=== PATIENT | male | born 1975 | race Caucasian/White ===

== ENCOUNTER → 2017-01-08 | Outpatient (REF) | payer OTHER ==
[2017-01-09 07:57] LABS: CONTROL LINE HPYORI INT CTR LINE PRESENT
== END ==
LOC: M LAB REF 16:58
PROVIDERS: ATTEND Nurse Practitioner Family
DX: R19.7 Diarrhea, unspecified (principal)

== ENCOUNTER → 2017-04-08 | Outpatient (REF) | payer OTHER | LOC: M LAB REF 13:39 | PROVIDERS: ATTEND Nurse Practitioner Family | DX: R00.2 Palpitations (principal) ==

== ENCOUNTER 2018-06-30 18:19 | Inpatient (IN) | payer OTHER ==
[2018-06-30] MEDS: PERCOCET 5MG/325MG TAB PO ×2 (18:46→22:53)
[2018-06-30 19:24] LABS: BASO # 0.1 10^3/uL (0.0-0.2); BASO % 0.9 % (0.0-1.0); EOS # 0.3 10^3/uL (0.0-0.50); EOS % 3.5 % (0.0-3.0); HEMATOCRIT 45.1 % (42.0-52.0); HEMOGLOBIN 16.1 g/dl (13.5-17.5); IMMATURE GRANULOCYTE % 0.3 % (0-3.0); LYMPH # 2.2 10^3/uL (1.5-4.5); LYMPH % 29.6 % (24.0-44.0); MEAN CORPUSCULAR HEMOGLOBIN 32.1 pg (27.0-33.0); MEAN CORPUSCULAR HGB CONC 35.7 g/dl (32.0-36.5); MEAN CORPUSCULAR VOLUME 89.8 fl (80.0-96.0); MONO # 0.8 10^3/uL (0.0-0.8); MONO % 10.5 % (0.0-5.0); NEUTROPHILS # 4.1 10^3/uL (1.8-7.7); NEUTROPHILS % 55.2 % (36.0-66.0); PLATELET COUNT, AUTOMATED 249 10^3/uL (150-450); RED BLOOD COUNT 5.02 10^6/uL (4.30-6.10); RED CELL DISTRIBUTION WIDTH 12.2 % (11.5-14.5); WHITE BLOOD COUNT 7.4 10^3/uL (4.0-10.0)
[2018-06-30 19:36] LABS: INR 0.98; PROTHROMBIN TIME 13.1 SECONDS (12.1-14.4)
[2018-06-30 19:37] LABS: PARTIAL THROMBOPLASTIN TIME 28.7 SECONDS (25.4-37.6)
[2018-06-30 19:45] LABS: ERYTHROCYTE SEDIMENTATION RATE 7 mm/hr (0-15)
[2018-06-30 19:47] LABS: LACTIC ACID SEPSIS PROTOCOL 1.7 MMOL/L (0.4-2.0)
[2018-06-30 19:48] LABS: ALBUMIN/GLOBULIN RATIO 1.25 (1.00-1.93); ALKALINE PHOSPHATASE 72 U/L (45-117); ALT/SGPT 41 U/L (12-78); ANION GAP 7 MEQ/L (8-16); AST/SGOT 19 U/L (7-37); BILIRUBIN,DIRECT 0.1 MG/DL (0.0-0.2); BILIRUBIN,TOTAL 0.4 MG/DL (0.2-1.0); BLOOD UREA NITROGEN 14 MG/DL (7-18); C REACTIVE PROTEIN QUANTITATIV 0.67 MG/DL (0.00-0.30); CALCIUM LEVEL 8.9 MG/DL (8.5-10.1); CARBON DIOXIDE LEVEL 27 MEQ/L (21-32); CHLORIDE LEVEL 102 MEQ/L (98-107); CREATININE FOR GFR 1.19 MG/DL (0.70-1.30); GLOMERULAR FILTRATION RATE > 60.0 (>60); GLUCOSE, FASTING 135 MG/DL (70-100); POTASSIUM SERUM 4.1 MEQ/L (3.5-5.1); SODIUM LEVEL 136 MEQ/L (136-145); TOTAL PROTEIN 7.2 GM/DL (6.4-8.2)
[2018-06-30] MEDS: CEFTAROLINE FOSAMIL 600 MG in D5W MINI-BAG PLUS 50 ML IV (20:05)
[2018-06-30] MEDS ORDERED: ACETAMINOPHEN TAB 650MG DOSE (2X325MG) PO (21:45)
[2018-06-30] MEDS ORDERED: diphenhydrAMINE 25 MG CAP PO (21:45)
[2018-06-30 22:18] LABS: CHOLESTEROL LEVEL 218 MG/DL (<200); CHOLESTEROL RISK RATIO 6.411 (<5); HDL CHOLESTEROL 34 MG/DL (>40); LDL CHOLESTEROL 140 MG/DL (<100); NON-HDL-C 184 MG/DL; TRIGLYCERIDES LEVEL 220 MG/DL (<150)
[2018-06-30 22:19] LABS: ESTIMATED AVERAGE GLUCOSE 143 MG/DL (60-110); HEMOGLOBIN A1c 6.6 %
[2018-07-01] MEDS: HEPARIN SOD (PORCINE) 5000 UNITS/ML VIAL SC ×3 (06:17→22:12)
[2018-07-01] MEDS: PERCOCET 5MG/325MG TAB PO ×4 (06:17→22:13)
[2018-07-01 06:27] LABS: HEMATOCRIT 42.5 % (42.0-52.0); HEMOGLOBIN 14.8 g/dl (13.5-17.5); MEAN CORPUSCULAR HEMOGLOBIN 31.6 pg (27.0-33.0); MEAN CORPUSCULAR HGB CONC 34.8 g/dl (32.0-36.5); MEAN CORPUSCULAR VOLUME 90.6 fl (80.0-96.0); PLATELET COUNT, AUTOMATED 211 10^3/uL (150-450); RED BLOOD COUNT 4.69 10^6/uL (4.30-6.10); RED CELL DISTRIBUTION WIDTH 12.3 % (11.5-14.5); WHITE BLOOD COUNT 5.3 10^3/uL (4.0-10.0)
[2018-07-01 06:50] LABS: ANION GAP 5 MEQ/L (8-16); BLOOD UREA NITROGEN 14 MG/DL (7-18); CALCIUM LEVEL 8.4 MG/DL (8.5-10.1); CARBON DIOXIDE LEVEL 29 MEQ/L (21-32); CHLORIDE LEVEL 103 MEQ/L (98-107); GLOMERULAR FILTRATION RATE > 60.0 (>60); GLUCOSE, FASTING 126 MG/DL (70-100); POTASSIUM SERUM 3.9 MEQ/L (3.5-5.1); SODIUM LEVEL 137 MEQ/L (136-145)
[2018-07-01 08:53] LABS: C REACTIVE PROTEIN QUANTITATIV 0.63 MG/DL (0.00-0.30)
[2018-07-01] MEDS: HYDROCORTISONE 1% OINTMENT 30GM TOP ×2 (09:00→21:00)
[2018-07-01] MEDS: LISINOPRIL 10 MG TAB PO (10:11)
[2018-07-01] MEDS: hydroCHLOROthiazide 25 MG TAB PO (10:11)
[2018-07-01] MEDS: CEFTAROLINE FOSAMIL 600 MG in D5W MINI-BAG PLUS 50 ML IV ×2 (10:12→22:12)
[2018-07-02] MEDS: HEPARIN SOD (PORCINE) 5000 UNITS/ML VIAL SC ×3 (06:19→20:58)
[2018-07-02] MEDS: PERCOCET 5MG/325MG TAB PO ×3 (06:20→20:59)
[2018-07-02 06:21] LABS: HEMATOCRIT 42.7 % (42.0-52.0); HEMOGLOBIN 14.8 g/dl (13.5-17.5); MEAN CORPUSCULAR HEMOGLOBIN 31.5 pg (27.0-33.0); MEAN CORPUSCULAR HGB CONC 34.7 g/dl (32.0-36.5); MEAN CORPUSCULAR VOLUME 90.9 fl (80.0-96.0); PLATELET COUNT, AUTOMATED 206 10^3/uL (150-450); RED CELL DISTRIBUTION WIDTH 12.3 % (11.5-14.5); WHITE BLOOD COUNT 4.6 10^3/uL (4.0-10.0)
[2018-07-02 06:35] LABS: ANION GAP 2 MEQ/L (8-16); BLOOD UREA NITROGEN 13 MG/DL (7-18); C REACTIVE PROTEIN QUANTITATIV 0.68 MG/DL (0.00-0.30); CALCIUM LEVEL 8.5 MG/DL (8.5-10.1); CARBON DIOXIDE LEVEL 33 MEQ/L (21-32); CHLORIDE LEVEL 103 MEQ/L (98-107); CREATININE FOR GFR 1.09 MG/DL (0.70-1.30); GLOMERULAR FILTRATION RATE > 60.0 (>60); GLUCOSE, FASTING 117 MG/DL (70-100); POTASSIUM SERUM 4.2 MEQ/L (3.5-5.1); SODIUM LEVEL 138 MEQ/L (136-145)
[2018-07-02] MEDS: CEFTAROLINE FOSAMIL 600 MG in D5W MINI-BAG PLUS 50 ML IV ×2 (09:44→20:58)
[2018-07-02] MEDS: LISINOPRIL 10 MG TAB PO (10:06)
[2018-07-02] MEDS: hydroCHLOROthiazide 25 MG TAB PO (10:07)
[2018-07-02] MEDS: HYDROCORTISONE 1% OINTMENT 30GM TOP ×2 (11:30→21:00)
[2018-07-03] MEDS: PERCOCET 5MG/325MG TAB PO ×3 (05:40→22:13)
[2018-07-03] MEDS: HEPARIN SOD (PORCINE) 5000 UNITS/ML VIAL SC ×3 (05:40→22:14)
[2018-07-03 05:53] LABS: HEMATOCRIT 42.2 % (42.0-52.0); HEMOGLOBIN 14.9 g/dl (13.5-17.5); MEAN CORPUSCULAR HEMOGLOBIN 31.6 pg (27.0-33.0); MEAN CORPUSCULAR HGB CONC 35.3 g/dl (32.0-36.5); MEAN CORPUSCULAR VOLUME 89.6 fl (80.0-96.0); PLATELET COUNT, AUTOMATED 205 10^3/uL (150-450); RED BLOOD COUNT 4.71 10^6/uL (4.30-6.10); RED CELL DISTRIBUTION WIDTH 12.2 % (11.5-14.5); WHITE BLOOD COUNT 4.8 10^3/uL (4.0-10.0)
[2018-07-03 06:16] LABS: ANION GAP 5 MEQ/L (8-16); BLOOD UREA NITROGEN 13 MG/DL (7-18); C REACTIVE PROTEIN QUANTITATIV 0.68 MG/DL (0.00-0.30); CALCIUM LEVEL 8.3 MG/DL (8.5-10.1); CARBON DIOXIDE LEVEL 30 MEQ/L (21-32); CHLORIDE LEVEL 103 MEQ/L (98-107); CREATININE FOR GFR 1.04 MG/DL (0.70-1.30); GLOMERULAR FILTRATION RATE > 60.0 (>60); GLUCOSE, FASTING 108 MG/DL (70-100); SODIUM LEVEL 138 MEQ/L (136-145)
[2018-07-03] MEDS: HYDROCORTISONE 1% OINTMENT 30GM TOP ×2 (07:46→22:13)
[2018-07-03] MEDS: CEFTAROLINE FOSAMIL 600 MG in D5W MINI-BAG PLUS 50 ML IV ×2 (09:39→22:12)
[2018-07-03] MEDS: hydroCHLOROthiazide 25 MG TAB PO (10:04)
[2018-07-03] MEDS: LISINOPRIL 10 MG TAB PO (10:05)
[2018-07-04] MEDS: HEPARIN SOD (PORCINE) 5000 UNITS/ML VIAL SC ×3 (06:04→20:36)
[2018-07-04 06:39] LABS: HEMATOCRIT 44.2 % (42.0-52.0); HEMOGLOBIN 15.3 g/dl (13.5-17.5); MEAN CORPUSCULAR HEMOGLOBIN 31.8 pg (27.0-33.0); MEAN CORPUSCULAR HGB CONC 34.6 g/dl (32.0-36.5); MEAN CORPUSCULAR VOLUME 91.9 fl (80.0-96.0); PLATELET COUNT, AUTOMATED 215 10^3/uL (150-450); RED BLOOD COUNT 4.81 10^6/uL (4.30-6.10); RED CELL DISTRIBUTION WIDTH 12.2 % (11.5-14.5); WHITE BLOOD COUNT 5.1 10^3/uL (4.0-10.0)
[2018-07-04 07:19] LABS: ANION GAP 6 MEQ/L (8-16); BLOOD UREA NITROGEN 15 MG/DL (7-18); C REACTIVE PROTEIN QUANTITATIV 0.76 MG/DL (0.00-0.30); CALCIUM LEVEL 9.1 MG/DL (8.5-10.1); CARBON DIOXIDE LEVEL 30 MEQ/L (21-32); CHLORIDE LEVEL 102 MEQ/L (98-107); CREATININE FOR GFR 1.11 MG/DL (0.70-1.30); GLOMERULAR FILTRATION RATE > 60.0 (>60); GLUCOSE, FASTING 113 MG/DL (70-100); POTASSIUM SERUM 4.4 MEQ/L (3.5-5.1); SODIUM LEVEL 138 MEQ/L (136-145)
[2018-07-04] MEDS: CEFTAROLINE FOSAMIL 600 MG in D5W MINI-BAG PLUS 50 ML IV ×2 (08:37→20:35)
[2018-07-04] MEDS: hydroCHLOROthiazide 25 MG TAB PO (08:37)
[2018-07-04] MEDS: HYDROCORTISONE 1% OINTMENT 30GM TOP ×2 (08:38→20:36)
[2018-07-04] MEDS: LISINOPRIL 10 MG TAB PO (08:38)
[2018-07-04] MEDS: PERCOCET 5MG/325MG TAB PO ×2 (13:26→20:37)
[2018-07-05 06:05] LABS: HEMATOCRIT 45.7 % (42.0-52.0); HEMOGLOBIN 15.8 g/dl (13.5-17.5); MEAN CORPUSCULAR HEMOGLOBIN 31.5 pg (27.0-33.0); MEAN CORPUSCULAR HGB CONC 34.6 g/dl (32.0-36.5); MEAN CORPUSCULAR VOLUME 91.2 fl (80.0-96.0); PLATELET COUNT, AUTOMATED 225 10^3/uL (150-450); RED BLOOD COUNT 5.01 10^6/uL (4.30-6.10); RED CELL DISTRIBUTION WIDTH 12.1 % (11.5-14.5)
[2018-07-05] MEDS: HEPARIN SOD (PORCINE) 5000 UNITS/ML VIAL SC (06:09)
[2018-07-05 06:21] LABS: ANION GAP 6 MEQ/L (8-16); BLOOD UREA NITROGEN 14 MG/DL (7-18); C REACTIVE PROTEIN QUANTITATIV 0.71 MG/DL (0.00-0.30); CALCIUM LEVEL 9.1 MG/DL (8.5-10.1); CARBON DIOXIDE LEVEL 28 MEQ/L (21-32); CHLORIDE LEVEL 104 MEQ/L (98-107); CREATININE FOR GFR 1.05 MG/DL (0.70-1.30); GLOMERULAR FILTRATION RATE > 60.0 (>60); GLUCOSE, FASTING 118 MG/DL (70-100); POTASSIUM SERUM 4.1 MEQ/L (3.5-5.1); SODIUM LEVEL 138 MEQ/L (136-145)
[2018-07-05] MEDS: HYDROCORTISONE 1% OINTMENT 30GM TOP (08:53)
[2018-07-05] MEDS: CEFTAROLINE FOSAMIL 600 MG in D5W MINI-BAG PLUS 50 ML IV (08:53)
[2018-07-05] MEDS: hydroCHLOROthiazide 25 MG TAB PO (08:53)
[2018-07-05] MEDS: LISINOPRIL 10 MG TAB PO (08:53)
== END 2018-07-05 12:00 | disposition home or self-care (01) | DRG 383 ==
LOC: M ED 18:19 → M ED INP 21:35 → M MS5PR 22:35
DX: L03.115 Cellulitis of right lower limb (principal); Z68.43 Body mass index [BMI] 50.0-59.9, adult; I10 Essential (primary) hypertension; E66.01 Morbid (severe) obesity due to excess calories; L30.9 Dermatitis, unspecified; E78.00 Pure hypercholesterolemia, unspecified; Z91.030 Bee allergy status; Z79.899 Other long term (current) drug therapy

== ENCOUNTER → 2018-08-23 | Outpatient (REF) | payer OTHER ==
[~2018-08-23] MED LIST: DOXY-350 PO; HYDR25TAB PO; LISI10TA4 PO; VENTAER INH
== END ==
LOC: M SFHCLERA 16:56
PROVIDERS: ATTEND Nurse Practitioner Family
DX: J02.9 Acute pharyngitis, unspecified (principal)

== ENCOUNTER → 2018-09-18 | Outpatient (REF) | payer OTHER | LOC: M SFHCLERA 16:38 | PROVIDERS: ATTEND Physician Assistant | DX: J02.9 Acute pharyngitis, unspecified (principal) ==

== ENCOUNTER → 2019-03-16 | Outpatient (CLI) | payer OTHER ==
[~2019-03-16] MED LIST changes: +ALPR0.25 PO; +CEPH500C PO; +E-Z-GAS II EFFERVESCENT PACKET (SODIUM BICARB./CITRIC ACID/SIMETHICONE) As Ordered ONE; +E-Z-HD 98% w/w 340GM SUSP BTL As Ordered ONE; +E-Z-PAQUE 96% w/w SUSP 176GM BTL As Ordered ONE; +ESOM40CA35 PO; +LORA-674 PO; +XARE15TA PO
--- NOTE | 2019-03-17 23:33 | REP ---
Esophagram The procedure was performed under the direct supervision of Dr. Batista. The images were reviewed with Dr. Batista. A single view PA chest x-ray is submitted as a director of cardiopulmonary services film. The superior mediastinal structures are midline. The heart size is within normal limits. The lungs are clear. Liquid barium and gas producing granules were given in the erect position as well as liquid barium in the prone oblique positions in order to perform a double contrast esophagram examination. The oral and pharyngeal stages of deglutition are unremarkable. Esophageal transport is prompt and efficient and there is no esophagitis, stricture or mucosal ring. There is a small sliding-type hiatal hernia. There is gastroesophageal reflux demonstrated to above the level of the radha. Impression: There is a small sliding-type hiatal hernia. There is gastroesophageal reflux demonstrated to above the level of the radha. Otherwise unremarkable double contrast esophagram examination. 0.9 minutes of fluoro time was utilized for this procedure. Reviewed by CINDY Philip 03/16/2019 03:40 P Electronically Signed by Kamran Batista MD 03/17/2019 11:25 P
== END ==
LOC: M RAD 07:56
PROVIDERS: ATTEND Otolaryngology
DX: K21.9 Gastro-esophageal reflux disease without esophagitis (principal); K44.9 Diaphragmatic hernia without obstruction or gangrene

== ENCOUNTER → 2019-06-25 | Outpatient (CLI) | payer OTHER ==
[~2019-06-25] MED LIST changes: -ALPR0.25 PO; -CEPH500C PO; -E-Z-GAS II EFFERVESCENT PACKET (SODIUM BICARB./CITRIC ACID/SIMETHICONE) As Ordered ONE; -E-Z-HD 98% w/w 340GM SUSP BTL As Ordered ONE; -E-Z-PAQUE 96% w/w SUSP 176GM BTL As Ordered ONE; -ESOM40CA35 PO; +ISOVUE-370 76% 100ML VIAL (Q9967) As Ordered ONE; -LORA-674 PO; -XARE15TA PO
--- NOTE | 2019-06-25 14:45 | REP ---
CT neck soft tissues: 06/25/2019. Indication: Dysphasia. Comparison: None. Technique: Axial CT images of the neck soft tissues were obtained following IV administration of 75 ml Isovue 370. Findings: There are no abnormal solid soft tissue masses, abnormal fluid collections or cervical lymphadenopathy. Punctate palatine tonsiliths are noted. The airway is patent. No abnormalities of the submandibular, parotid or thyroid glands are noted. The visualized lungs are clear. No significant vascular abnormalities are present. No significant ocular, intraorbital or intracranial abnormalities are detected. Impression: No abnormal solid soft tissue masses, fluid collections or cervical lymphadenopathy. Electronically Signed by Yoni Moser DO 06/25/2019 02:36 P
== END ==
LOC: M RAD 12:56
PROVIDERS: ATTEND Internal Medicine Gastroenterology
DX: R13.10 Dysphagia, unspecified (principal); K21.0 Gastro-esophageal reflux disease with esophagitis
CPT/HCPCS: 70491; Q9967

== ENCOUNTER 2019-07-24 10:09 | Day surgery (SDC) | payer OTHER ==
[~2019-07-24] VITALS: Ht 185.4 cm; Wt 172.8 kg
[~2019-07-24 10:09] MED LIST changes: -ISOVUE-370 76% 100ML VIAL (Q9967) As Ordered ONE; +LIDOCAINE 2% INJ 100 MG/5 ML SDV (FOR ANES.) As Ordered ONE; +NS 1,000 ML IV ONE; +PROPOFOL 200 MG/20 ML VIAL As Ordered ONE
[2019-07-24] MEDS ORDERED: LIDOCAINE 2% INJ 100 MG/5 ML SDV (FOR ANES.) As Ordered ONE (11:35)
[2019-07-24] MEDS ORDERED: PROPOFOL 200 MG/20 ML VIAL As Ordered ONE ×3 (11:56→12:13)
--- NOTE | 2019-07-24 12:27 | ROOR ---
Patient Name: Shawn Ramirez Procedure Date: 07/24/2019 11:35 AM Date of : 1975 Age: 44 Room: [facility] Gender: Male Note Status: Finalized Procedure: Upper GI endoscopy Indications: Dysphagia, Suspected gastro-esophageal reflux disease, Preoperative assessment for bariatric surgery to treat morbid obesity Providers: Rico Cervantes MD Referring MD: Gerard Fernandez MD, [facility] CALLE [facility] Jennifer Requesting Provider: Medicines: Monitored Anesthesia Care Complications: No immediate complications. Procedure: Pre-Anesthesia Assessment: - Prior to the procedure, a History and Physical was performed, and patient medications and allergies were reviewed. The patient is competent. The risks and benefits of the procedure and the sedation options and risks were discussed with the patient. All questions were answered and informed consent was obtained. Patient identification and proposed procedure were verified by the physician, the nurse and the anesthesiologist in the procedure room. Mental Status Examination: alert and oriented. Airway Examination: normal oropharyngeal airway and neck mobility. Respiratory Examination: clear to auscultation. CV Examination: normal. Prophylactic Antibiotics: The patient does not require prophylactic antibiotics. Prior Anticoagulants: The patient has taken no previous anticoagulant or antiplatelet agents. ASA Grade Assessment: III - A patient with severe systemic disease. After reviewing the risks and benefits, the patient was deemed in satisfactory condition to undergo the procedure. The anesthesia plan was to use monitored anesthesia care (MAC). Immediately prior to administration of medications, the patient was re-assessed for adequacy to receive sedatives. The heart rate, respiratory rate, oxygen saturations, blood pressure, adequacy of pulmonary ventilation, and response to care were monitored throughout the procedure. The physical status of the patient was re-assessed after the procedure. The Endoscope was introduced through the mouth, and advanced to the second part of duodenum. The upper GI endoscopy was accomplished without difficulty. The patient tolerated the procedure poorly due to the patient's combativeness. Findings: The Z-line was irregular and was found 42 cm from the incisors. No gross lesions were noted in the entire esophagus. Biopsies were obtained from the proximal and distal esophagus with cold forceps for histology of suspected eosinophilic esophagitis. Verification of patient identification for the specimen was done by the physician and nurse using the patient's name, date and medical record number. Estimated blood loss was minimal. Scattered moderate inflammation characterized by erythema, friability and granularity was found in the gastric antrum. Biopsies were taken with a cold forceps for Helicobacter pylori testing. The duodenal bulb and second portion of the duodenum were normal. Biopsies for histology were taken with a cold forceps for evaluation of celiac disease. Impression: - Z-line irregular, 42 cm from the incisors. - No gross lesions in esophagus. Biopsied. - Gastritis. Biopsied. - Normal duodenal bulb and second portion of the duodenum. Biopsied. Recommendation: - Patient has a contact number available for emergencies. The signs and symptoms of potential delayed complications were discussed with the patient. Return to normal activities tomorrow. Written discharge instructions were provided to the patient. - High fiber diet. - Continue present medications. - Follow an antireflux regimen. - Await pathology results. - Await pathology results. - If Biopsy shows H. pylori will need therapy with antibiotic course.. - Telephone GI clinic for pathology results in 2 weeks. - Return to primary care physician. Rico Cervantes MD Rico Cervantes MD 07/24/2019 12:26:59 PM Electronically signed by Rico Cervantes MD Number of Addenda: 0 Note Initiated On: 07/24/2019 11:35 AM Estimated Blood Loss: Estimated blood loss: none.
--- NOTE | 2019-07-24 12:33 | ROOR ---
Patient Name: Shawn Ramirez Procedure Date: 07/24/2019 11:36 AM Date of : 1975 Age: 44 Room: [facility] Gender: Male Note Status: Finalized Procedure: Colonoscopy Indications: Screening in patient at increased risk: Family history of 1st-degree relative with colorectal cancer before age 60 years, Family history of colon cancer in a first-degree relative Providers: Rico Cervantes MD Referring MD: Gerard Fernandez MD Requesting Provider: [facility] Jennifer Medicines: Monitored Anesthesia Care Complications: No immediate complications. Procedure: Pre-Anesthesia Assessment: - Prior to the procedure, a History and Physical was performed, and patient medications and allergies were reviewed. The patient is competent. The risks and benefits of the procedure and the sedation options and risks were discussed with the patient. All questions were answered and informed consent was obtained. Patient identification and proposed procedure were verified by the physician, the nurse and the anesthesiologist in the procedure room. Mental Status Examination: alert and oriented. Airway Examination: normal oropharyngeal airway and neck mobility. Respiratory Examination: clear to auscultation. CV Examination: normal. Prophylactic Antibiotics: The patient does not require prophylactic antibiotics. Prior Anticoagulants: The patient has taken no previous anticoagulant or antiplatelet agents. ASA Grade Assessment: III - A patient with severe systemic disease. After reviewing the risks and benefits, the patient was deemed in satisfactory condition to undergo the procedure. The anesthesia plan was to use monitored anesthesia care (MAC). Immediately prior to administration of medications, the patient was re-assessed for adequacy to receive sedatives. The heart rate, respiratory rate, oxygen saturations, blood pressure, adequacy of pulmonary ventilation, and response to care were monitored throughout the procedure. The physical status of the patient was re-assessed after the procedure. The Colonoscope was introduced through the anus and advanced to the terminal ileum, with identification of the appendiceal orifice and IC valve. The colonoscopy was performed without difficulty. The patient tolerated the procedure well. The quality of the bowel preparation was fair except the ascending colon was poor. The ileocecal valve, appendiceal orifice, and rectum were photographed. Scope insertion time was 3 minutes. Scope withdrawal time was 10 minutes. The total duration of the procedure was 14 minutes. Findings: The perianal and digital rectal examinations were normal. The terminal ileum appeared normal. Two sessile polyps were found in the transverse colon and ascending colon. The polyps were 5 to 6 mm in size. These polyps were removed with a cold snare. Resection and retrieval were complete. Verification of patient identification for the specimen was done by the physician and nurse using the patient's name, date and medical record number. Estimated blood loss was minimal. Multiple small and large-mouthed diverticula were found from sigmoid to transverse colon. Non-bleeding external and internal hemorrhoids were found during retroflexion. The hemorrhoids were medium-sized. Impression: - The examined portion of the ileum was normal. - Two 5 to 6 mm polyps in the transverse colon and in the ascending colon, removed with a cold snare. Resected and retrieved. - Diverticulosis from sigmoid to transverse colon. - Non-bleeding external and internal hemorrhoids. Recommendation: - Patient has a contact number available for emergencies. The signs and symptoms of potential delayed complications were discussed with the patient. Return to normal activities tomorrow. Written discharge instructions were provided to the patient. - High fiber diet. - Continue present medications. - Await pathology results. - Repeat colonoscopy in 3 years for surveillance based on pathology results. - Telephone GI clinic for pathology results in 2 weeks. - Return to primary care physician. Rico Cervantes MD Rico Cervantes MD 07/24/2019 12:33:20 PM Electronically signed by Rico Cervantes MD Number of Addenda: 0 Note Initiated On: 07/24/2019 11:36 AM Estimated Blood Loss: Estimated blood loss was minimal.
[2019-07-24 12:45] VITALS: BP 148/82
== END 2019-07-24 12:47 | disposition home or self-care (01) ==
LOC: M OPP 10:09
PROVIDERS: ATTEND Internal Medicine Gastroenterology
DX: Z12.11 Encounter for screening for malignant neoplasm of colon (principal); Z80.0 Family history of malignant neoplasm of digestive organs; K64.8 Other hemorrhoids; K63.5 Polyp of colon; K57.30 Diverticulosis of large intestine without perforation or abscess without bleeding; K22.8 Other specified diseases of esophagus; K29.70 Gastritis, unspecified, without bleeding; R13.10 Dysphagia, unspecified; E66.01 Morbid (severe) obesity due to excess calories; G47.30 Sleep apnea, unspecified; Z80.3 Family history of malignant neoplasm of breast; Z80.42 Family history of malignant neoplasm of prostate

== ENCOUNTER 2019-07-30 15:58 | Inpatient (IN) | payer OTHER ==
[~2019-07-30] VITALS: Ht 185.4 cm; Wt 174.0 kg
[~2019-07-30 15:58] MED LIST changes: -LIDOCAINE 2% INJ 100 MG/5 ML SDV (FOR ANES.) As Ordered ONE; -NS 1,000 ML IV ONE; -PROPOFOL 200 MG/20 ML VIAL As Ordered ONE
[2019-07-30] MEDS ORDERED: LORA-674 PO (16:15)
[2019-07-30] MEDS ORDERED: CEPH500C PO (16:15)
[2019-07-30] MEDS ORDERED: ESOM40CA35 PO (16:15)
--- NOTE | 2019-07-30 16:54 | REP ---
Left lower extremity duplex venous ultrasound: History: Left leg pain. Rule out DVT. Findings: The deep veins are anechoic and fully compressible from the groin to the popliteal fossa on two-dimensional scanning. Color flow and spectral Doppler interrogation are unremarkable about the knee. One of the anterior tibial veins in the proximal calf contains occlusive echogenic thrombus consistent with DVT in the calf. Impression: There is no evidence of deep vein thrombosis above the knee. There is occlusive thrombus in one of the anterior tibial veins involving the proximal calf. The study is positive therefore for deep vein thrombosis below the knee. Electronically Signed by Asif Ruiz MD 07/30/2019 04:46 P
[2019-07-30 17:26] LABS: BASO # 0.1 10^3/uL (0.0-0.2); BASO % 0.8 % (0.0-1.0); EOS # 0.2 10^3/uL (0.0-0.5); HEMATOCRIT 45.2 % (42.0-52.0); HEMOGLOBIN 15.6 g/dl (13.5-17.5); LYMPH # 1.9 10^3/uL (1.5-5.0); LYMPH % 23.8 % (24.0-44.0); MEAN CORPUSCULAR HEMOGLOBIN 31.1 pg (27.0-33.0); MEAN CORPUSCULAR HGB CONC 34.5 g/dl (32.0-36.5); MEAN CORPUSCULAR VOLUME 90.2 fl (80.0-96.0); MONO # 0.7 10^3/uL (0.0-0.8); MONO % 8.8 % (0.0-5.0); NEUTROPHILS # 4.9 10^3/uL (1.5-8.5); NEUTROPHILS % 62.8 % (36.0-66.0); PLATELET COUNT, AUTOMATED 236 10^3/uL (150-450); RED BLOOD COUNT 5.01 10^6/uL (4.30-6.10); WHITE BLOOD COUNT 7.8 10^3/uL (4.0-10.0)
--- NOTE | 2019-07-30 17:44 | REP ---
Chest x-ray: Two views. History: Chest pain. Comparison study: March 16, 2019. Findings: Exam quality is substantially inhibited by patient body habitus. On the frontal view, the lungs appear well inflated and clear. Pleural angles are sharp. Heart is not enlarged. Pulmonary vasculature is not increased. The lateral view is quite suboptimal due to under penetration. Impression: No active disease seen. Under penetrated lateral film. Electronically Signed by Asif Ruiz MD 07/30/2019 06:35 P
[2019-07-30 17:53] LABS: BLOOD UREA NITROGEN 17 MG/DL (7-18); CALCIUM LEVEL 9.4 MG/DL (8.5-10.1); CARBON DIOXIDE LEVEL 27 MEQ/L (21-32); CHLORIDE LEVEL 101 MEQ/L (98-107); CK-MB VALUE MASS 1.2 NG/ML (<3.6); CPK CREATINE PHOSPHOKINASE 127 U/L (39-308); CREATININE FOR GFR 0.99 MG/DL (0.70-1.30); GLOMERULAR FILTRATION RATE > 60.0 (>60); GLUCOSE, FASTING 170 MG/DL (70-100); MB/CK RELATIVE INDEX 0.94 (< OR =4); POTASSIUM SERUM 3.9 MEQ/L (3.5-5.1); SODIUM LEVEL 136 MEQ/L (136-145); TROPONIN I < 0.02 NG/ML (< 0.10)
[2019-07-30 17:59] LABS: ERYTHROCYTE SEDIMENTATION RATE 10 mm/hr (0-15)
[2019-07-30] MEDS ORDERED: MIDAZOLAM INJ 5 MG/ML VIAL (J2250) ONE (18:00)
[2019-07-30 18:07] LABS: D-DIMER QUANT 1746.77 ng/ml (<500)
[2019-07-30] MEDS ORDERED: ISOVUE-370 76% 100ML VIAL (Q9967) As Ordered ONE (18:14)
--- NOTE | 2019-07-30 19:04 | REPVR ---
PROCEDURE INFORMATION: Exam: CT Angiography Chest With Contrast Exam date and time: 07/30/2019 6:24 PM Age: 44 years old Clinical indication: Chest pain; Additional info: Cp with positive dvt. R/O pe TECHNIQUE: Imaging protocol: Computed tomographic angiography of the chest with intravenous contrast. 3D rendering: MIP and/or 3D reconstructed images were created by the technologist. Radiation optimization: All CT scans at this facility use at least one of these dose optimization techniques: automated exposure control; mA and/or kV adjustment per patient size (includes targeted exams where dose is matched to clinical indication); or iterative reconstruction. Contrast material: ISOVUE 370; Contrast volume: 100 ml; Contrast route: IV; COMPARISON: CR Chest, 2 view PA, Lat 07/30/2019 5:13 PM FINDINGS: Pulmonary arteries: Small pulmonary embolus in a segmental artery to the right upper and lower lobes. Aorta: Unremarkable. No aortic aneurysm. No aortic dissection. Lungs: Multiple smooth bordered noncalcified pulmonary parenchymal nodules in the mid and lower lung zones measuring up to 7 mm on the right. Pleural space: Unremarkable. No pneumothorax. No pleural effusion. Heart: Unremarkable. No cardiomegaly. No pericardial effusion. Lymph nodes: Unremarkable. No enlarged lymph nodes. Bones/joints: The spine demonstrates mild degenerative changes. Soft tissues: Unremarkable. IMPRESSION: 1. Multiple smooth bordered noncalcified pulmonary parenchymal nodules in the mid and lower lung zones measuring up to 7 mm on the right. For patients at low risk (minimal or absent history of smoking and of other known risk factors), recommend CT at 3-6 months, then consider CT at 18-24 months. For patients at high risk (history of smoking or of other known risk factors), recommend CT at 3-6 months, then CT at 18-24 months. (Niki et al., Fleischner Society, 2017) 2. Small pulmonary embolus in a segmental artery to the right upper and lower lobes. 3. No evidence of aortic dissection or aneurysm. 4. No acute pulmonary parenchymal abnormalities. A critical call has been made to speak with the ordering physician/practitioner. This report will be amended once consultation has occurred. Electronically signed by: Steve Leo On 07/30/2019 19:04:11 PM
[2019-07-30] MEDS ORDERED: MORPHINE 4 MG/ML 1ML VIAL/SYRINGE (J2270) IV ONE (19:15)
[2019-07-30] MEDS ORDERED: ONDANSETRON 4MG/2ML VIAL (J2405) IV ONE (19:15)
[2019-07-30] MEDS ORDERED: MOM 30ML SUSPENSION UDC PO PRN (19:30)
[2019-07-30] MEDS ORDERED: MAALOX 30 ML SUSP *UDC PO PRN (19:30)
--- NOTE | 2019-07-30 19:30 | HPEPDOC ---
[facility] Medical History & Physical Date of Admission Jul 30, 2019 Date of Service: Jul 30, 2019 Primary Care Physician: JOSE J AGUILAR M.D. Attending Physician: DENNIS HICKMAN MD History and Physical TIME OF SERVICE: 8:20 PM CHIEF COMPLAINT: Leg pain HISTORY OF PRESENT ILLNESS: This is a 44-year-old male who presents with complaints of 5 day ration, left lower extremity 7/10 pain associated with swelling. He was diagnosed with cellulitis and given antibiotics but came to the ED because symptoms are not improving. He is also complaining of left-sided stabbing, intermittent chest pain for 2 days. REVIEW OF SYSTEMS: 12 point review of systems negative except as listed in HPI PAST MEDICAL/ SURGICAL HISTORY: Remote history of synovitis Chronic hypertension Gout. Fatty liver. 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 HOME MEDICATIONS: Please see below. PHYSICAL EXAMINATION: VITAL SIGNS: Please see below. GEN: Obese/ well developed/ anxious INTEGUMENT: not flushed HEENT: NCAT / lips acyanotic /mucus membranes moist and pink / short CVS: RRR/NMRG/ he has bilateral eft lower extremity edema LUNGS: able to speak full sentences without stopping to take a breath / no coughing / lungs are clear to auscultation bilaterally on room air NEURO: CN 2-12 are grossly intact PSYCH: alert and oriented to person place and time/ able to understand and follow all commands LABORATORY DATA: See below. IMAGING: Venous duplex " Impression:There is no evidence of deep vein thrombosis above the knee. There is occlusive thrombus in one of the anterior tibial veins involving the proximal calf. The study is positive therefore for deep vein thrombosis below the knee. CT chest " IMPRESSION: 1. Multiple smooth bordered noncalcified pulmonary parenchymal nodules in the mid and lower lung zones measuring up to 7 mm on the right. For patients at low risk (minimal or absent history of smoking and of other known risk factors), recommend CT at 3-6 months, then consider CT at 18-24 months. For patients at high risk (history of smoking or of other known risk factors), recommend CT at 3-6 months, then CT at 18-24 months. (Niki et al., Fleischner Society, 2017) 2. Small pulmonary embolus in a segmental artery to the right upper and lower lobes. 3. No evidence of aortic dissection or aneurysm. 4. No acute pulmonary parenchymal abnormalities MICROBIOLOGY: Please see below. ASSESSMENT: Mr. Ramirez is a 44-year-old with a past medical history of hypertension, gout, fatty liver, asthma and GERD who is admitted for evaluation of DVT and PE. PLAN: 1. 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 Anatomically that he has a submassive PE as his blood pressure is not low and his troponin is normal. Plan: Admit to PCU/start Xarelto/follow-up echo and BNP to to rule out right heart strain / he can follow-up with hematology on an outpatient basis for the results of the hypercoagulable workup ordered in the ER and to determine the duration of his anticoagulation / discontinue cephalexin / acetaminophen for pain 2. Calcified Pulmonology nodules. Plan: Follow up with PCP for surveillance CT 3. Hypertension. Plan: Continue hydrochlorothiazide and lisinopril. 4. Asthma, stable Plan: Continue albuterol when necessary 5. Morbid obesity. His BMI is 50.6 This complicates care. Plan: f/u A1c/can f/u w PCP for STOP BANG questionnaire, assistant boys track coach consult & referral for Bariatric Surgeon / recommend cardiovascular exercise for 40 min 4- 5 days a week DVT PROPHYLAXIS: Not needed because he is on anticoagulation for PE DISPOSITION: Likely home after less than 2 midnight's stay Vital Signs Vital Signs Date Time Temp Pulse Resp B/P (MAP) Pulse Ox O2 Delivery O2 Flow Rate FiO2 07/30/19 19:18 20 07/30/19 16:11 07/30/19 15:59 99.5 119 96 Room Air Laboratory Data Labs 24H Laboratory Tests 2 07/30/19 16:45: Immature Granulocyte % (Auto) 0.8, Neutrophils (%) (Auto) 62.8, Lymphocytes (%) (Auto) 23.8L, Monocytes (%) (Auto) 8.8H, Eosinophils (%) (Auto) 3.0, Basophils (%) (Auto) 0.8, Neutrophils # (Auto) 4.9, Lymphocytes # (Auto) 1.9, Monocytes # (Auto) 0.7, Eosinophils # (Auto) 0.2, Basophils # (Auto) 0.1, Nucleated Red Blood Cells % (auto) 0.0, Erythrocyte Sedimentation Rate 10, Anion Gap 8, Glomerular Filtration Rate > 60.0, Calcium Level 9.4, Total Creatine Kinase 127, Creatine Kinase MB 1.2, Creatine Kinase MB Relative Index 0.94, Troponin I < 0.02, C-Reactive Protein, Quantitative 1.30H 07/30/19 17:42: D-Dimer, Quantitative 1746.77H CBC/BMP Laboratory Tests 07/30/19 16:45 Microbiology Microbiology 07/30/19 Blood Culture, Received Pending 07/30/19 Blood Culture, Received Pending Home Medications Scheduled Cephalexin (Cephalexin) 500 Mg Capsule, 500 MG PO QID FILLED 07/27/18 FOR 10 DAYS Esomeprazole Magnesium (Esomeprazole Magnesium Dr) 40 Mg Capsule.dr, 40 MG PO QHS Hydrochlorothiazide (Hydrochlorothiazide) 25 Mg Tab, 25 MG PO DAILY Lisinopril (Lisinopril) 10 Mg Tab, 10 MG PO DAILY Loratadine (Loratadine) 10 Mg Tablet, 10 MG PO DAILY Scheduled PRN Albuterol Sulfate (Ventolin Hfa) 108 Mcg/Act Aer, 2 PUFFS INH QID PRN for SHORTNESS OF BREATH Alprazolam (Alprazolam) 0.25 Mg Tablet, 0.25 MG PO BID PRN for ANXIETY Allergies Coded Allergies: No Known Allergies (Unverified , 07/10/19) A-FIB/CHADSVASC A-FIB History Current/History of A-Fib/PAF?: No Current PO Anticoag Therapy: No DENNIS HICKMAN MD Jul 30, 2019 19:30
[2019-07-30] MEDS ORDERED: APIXABAN 5 MG TAB (ELIQUIS) PO ONE (19:45)
[2019-07-30] MEDS ORDERED: ALPR0.25 PO (19:59)
[2019-07-30 20:56] VITALS: BP 163/97
[2019-07-30] MEDS ORDERED: ALBUTEROL 90 MCG/ACT 8GM HFA INHALER INH PRN (21:00)
[2019-07-30] MEDS ORDERED: ALPRAZolam 0.25 MG TAB PO PRN (21:00)
[2019-07-30] MEDS ORDERED: OMEPRAZOLE 20 MG CAP PO SCH (21:00)
[2019-07-30] MEDS ORDERED: DOCUSATE SODIUM 100 MG CAP PO SCH (21:00)
[2019-07-30 21:41] LABS: INR 1.12; PROTHROMBIN TIME 14.1 SECONDS (11.8-14.0)
[2019-07-30 21:42] LABS: PARTIAL THROMBOPLASTIN TIME 32.3 SECONDS (25.0-38.4)
[2019-07-30 22:41] LABS: HEMOGLOBIN A1c 7.2 %
[2019-07-31] MEDS: ACETAMINOPHEN TAB 650MG DOSE (2X325MG) PO PRN ×2 (00:33→08:37)
[2019-07-31 02:00] VITALS: BP 118/78
[2019-07-31] MEDS ORDERED: PERCOCET 5MG/325MG TAB PO ONE (04:30)
[2019-07-31 04:54] VITALS: BP 148/103
[2019-07-31] MEDS ORDERED: DOCUSATE SODIUM 100 MG CAP PO SCH (05:00)
[2019-07-31] MEDS ORDERED: lisinopriL 10 MG TAB PO SCH ×2 (05:00→09:00)
[2019-07-31] MEDS ORDERED: LORATADINE 10 MG TAB PO SCH ×2 (05:00→09:00)
[2019-07-31] MEDS ORDERED: hydroCHLOROthiazide 25 MG TAB PO SCH ×2 (05:00→09:00)
[2019-07-31 06:00] VITALS: BP 140/103
[2019-07-31 06:04] VITALS: BP 140/103
[2019-07-31 06:35] LABS: HEMATOCRIT 44.5 % (42.0-52.0); MEAN CORPUSCULAR HEMOGLOBIN 30.8 pg (27.0-33.0); MEAN CORPUSCULAR HGB CONC 33.7 g/dl (32.0-36.5); MEAN CORPUSCULAR VOLUME 91.4 fl (80.0-96.0); PLATELET COUNT, AUTOMATED 210 10^3/uL (150-450); RED BLOOD COUNT 4.87 10^6/uL (4.30-6.10); WHITE BLOOD COUNT 5.8 10^3/uL (4.0-10.0)
[2019-07-31 06:52] LABS: BLOOD UREA NITROGEN 18 MG/DL (7-18); CALCIUM LEVEL 8.9 MG/DL (8.5-10.1); CARBON DIOXIDE LEVEL 27 MEQ/L (21-32); CHLORIDE LEVEL 102 MEQ/L (98-107); CREATININE FOR GFR 0.95 MG/DL (0.70-1.30); GLOMERULAR FILTRATION RATE > 60.0 (>60); GLUCOSE, FASTING 168 MG/DL (70-100); POTASSIUM SERUM 3.7 MEQ/L (3.5-5.1); SODIUM LEVEL 136 MEQ/L (136-145)
[2019-07-31] MEDS ORDERED: RIVAROXABAN 15 MG TAB (XARELTO) PO SCH (08:00)
[2019-07-31 10:00] VITALS: BP 130/83
[2019-07-31] MEDS ORDERED: XARE15TA PO (10:09)
--- NOTE | 2019-07-31 12:28 | DS.PDOC ---
Discharge Summary General Date of Admission Jul 30, 2019 at 19:30 Date of Discharge 07/31/19 Discharge Summary PROCEDURES PERFORMED DURING STAY: None. ADMITTING DIAGNOSES: 1. DVT. DISCHARGE DIAGNOSES: 1. DVT left lower extremity. Obesity. COMPLICATIONS/CHIEF COMPLAINT: Deep Vein Thrombosis Lower Left Extremity. HISTORY OF PRESENT ILLNESS: This is a 44-year-old male who presents with complaints of 5 day ration, left lower extremity 7/10 pain associated with swelling. He was diagnosed with cellulitis and given antibiotics but came to the ED because symptoms are not improving. He is also complaining of left-sided stabbing, intermittent chest pain for 2 days. . HOSPITAL COURSE: Patient was admitted with the diagnosis of DVT of left lower extremity. Patient was started on by mouth Xarelto 15 mg by mouth twice a day. Patient is clinically stable. Last echocardiogram is done. He will be discharged home on by mouth Xarelto and he can follow with his PCP as outpatient in one week for further care. Patient was advised to frequently ambulate to avoid any formation of clots in the future. DISCHARGE MEDICATIONS: Please see below. ALLERGIES: Please see below. PHYSICAL EXAMINATION ON DISCHARGE: VITAL SIGNS: Please see below. GENERAL: Within normal limits HEENT: PERRLA. Extraocular muscles intact NECK: Supple CARDIOVASCULAR EXAMINATION: S1, S2, regular RESPIRATORY EXAMINATION: Clear to A&P ABDOMINAL EXAMINATION: Benign EXTREMITIES: Positive Homans sign LEFT CALF, distal pulses equal bilaterally SKIN: Within normal limits NEUROLOGICAL EXAMINATION: Focal motor sensory deficit PSYCHIATRIC EXAMINATION: Normal LABORATORY DATA: Please see below. IMAGING: Venous Dopplers studies left lower extremity: There is no evidence of deep vein thrombosis above the knee. There is occlusive thrombus in one of the anterior tibial veins involving the proximal calf. The study is positive therefore for deep vein thrombosis below the knee PROGNOSIS: good ACTIVITY: As tolerated. DIET: As tolerated DISCHARGE PLAN: Follow with PCP in one week DISPOSITION: . Home DISCHARGE INSTRUCTIONS: 1. As per discharge instructions. ITEMS TO FOLLOWUP ON ON OUTPATIENT: 1. Follow with PCP in one week. DISCHARGE CONDITION: Stable. TIME SPENT ON DISCHARGE: 35 minutes. Vital Signs/I&Os Vital Signs Date Time Temp Pulse Resp B/P (MAP) Pulse Ox O2 Delivery O2 Flow Rate FiO2 07/31/19 10:00 96.7 88 17 130/83 (99) 97 Room Air I&O- Last 24 Hours up to 6 AM 07/31/19 06:00 Intake Total 250 ml Output Total 0 ml Balance 250 ml Laboratory Data Labs 24H Laboratory Tests 2 07/30/19 16:45: Immature Granulocyte % (Auto) 0.8, Neutrophils (%) (Auto) 62.8, Lymphocytes (%) (Auto) 23.8L, Monocytes (%) (Auto) 8.8H, Eosinophils (%) (Auto) 3.0, Basophils (%) (Auto) 0.8, Neutrophils # (Auto) 4.9, Lymphocytes # (Auto) 1.9, Monocytes # (Auto) 0.7, Eosinophils # (Auto) 0.2, Basophils # (Auto) 0.1, Nucleated Red Blood Cells % (auto) 0.0, Erythrocyte Sedimentation Rate 10, Anion Gap 8, Glomerular Filtration Rate > 60.0, Calcium Level 9.4, Total Creatine Kinase 127, Creatine Kinase MB 1.2, Creatine Kinase MB Relative Index 0.94, Troponin I < 0.02, C-Reactive Protein, Quantitative 1.30H 07/30/19 17:42: Prothrombin Time 14.1H, Prothromb Time International Ratio 1.12, Activated Partial Thromboplast Time 32.3, D-Dimer, Quantitative 1746.77H 07/30/19 22:08: Estimated Mean Plasma Glucose 160H, Hemoglobin A1c 7.2 07/31/19 05:58: Nucleated Red Blood Cells % (auto) 0.0, Anion Gap 7L, Glomerular Filtration Rate > 60.0, Calcium Level 8.9 CBC/BMP Laboratory Tests 07/30/19 16:45 07/31/19 05:58 Microbiology Microbiology 07/30/19 Blood Culture, Received Pending 07/30/19 Blood Culture, Received Pending Discharge Medications Scheduled Esomeprazole Magnesium (Esomeprazole Magnesium Dr) 40 Mg Capsule.dr, 40 MG PO QHS, (Reported) Hydrochlorothiazide (Hydrochlorothiazide) 25 Mg Tab, 25 MG PO DAILY, (Reported) Lisinopril (Lisinopril) 10 Mg Tab, 10 MG PO DAILY, (Reported) Loratadine (Loratadine) 10 Mg Tablet, 10 MG PO DAILY, (Reported) Rivaroxaban (Xarelto) 15 Mg Tablet, 15 MG PO Q12H Scheduled PRN Albuterol Sulfate (Ventolin Hfa) 108 Mcg/Act Aer, 2 PUFFS INH QID PRN for SHORTNESS OF BREATH, (Reported) Alprazolam (Alprazolam) 0.25 Mg Tablet, 0.25 MG PO BID PRN for ANXIETY, (Reported) Allergies Coded Allergies: No Known Allergies (Unverified , 07/10/19) DARIELA IVERSON MD Jul 31, 2019 12:28
--- NOTE | 2019-07-31 22:02 | ECHO ---
DATE OF PROCEDURE: 07/31/2019 AGE: 44 GENDER: Male HEIGHT: 73 inches WEIGHT: 383 pounds BODY SURFACE AREA: 2.84 m2 PATIENT LOCATION: Inpatient, [address] [place] [address], room 4212 REFERRING PHYSICIAN: Catrina Kennedy MD INDICATION: Dyspnea. 2-D MEASUREMENTS: RV: 4.8 cm LV: 5.5 cm Septum: 1.3 cm Posterior wall: 1.3 cm Aortic root: 3.7 cm LA: 5.0 cm LVEF: 60 - 65% DOPPLER MEASUREMENTS: AV: 1.4 m/s LVOT: 1.0 cm MV-E: 70, A: 60, EA ratio: 1.2 Early mitral deceleration time: 289 ms E prime medial: 8 A prime medial: 7.3 E prime lateral: 11 Average E/E prime ratio: 7.3/PCWP: 11 mmHg PV: 0.8 m/s Pulmonary artery acceleration time: 100 ms RVSP: 40 mmHg COMMENTS Normal sinus rhythm with subtle interventricular conduction disturbance. Technically challenging study in light of the patient's body habitus, but some diagnostically useful information was still obtained. M-mode and two-dimensional echocardiography was performed with pulsed, continuous wave, color flow and tissue Doppler studies. Mild eccentric left ventricle hypertrophy with normal wall motion. Moderately promptly dilated left atrium with grade 2 LV diastolic dysfunction, but currently normal estimated mean left atrial pressure. At least mildly dilated right heart chambers with normal wall motion and Doppler evidence of moderate pulmonary hypertension. Unable to visualize his inferior vena cava - central venous pressure was estimated at 10 mmHg by standard convention. Normal appearing and functioning aortic valve. Normal aortic dimensions. Normal appearing and functioning mitral valvular apparatus with no more than trace insufficiency. Normal appearing tricuspid valve with very mild insufficiency. No apparent intracardiac mass or pericardial effusion.
--- NOTE | 2019-08-01 22:07 | ECGEPIP ---
[facility] - ED Test Date: 2019-07-30 Pat Name: CARSON FREGOSO Department: Room: [place] [address] Gender: Male [employer]: BRIAN : 1975 Requested By: ISABELL Keita PA-C Order Number: [id number] Reading MD: Clare Priest Measurements Intervals [place] Rate: 105 P: 28 [place]: 170 QRS: -7 QRSD: 109 T: 15 QT: 339 QTc: 449 Interpretive Statements SINUS TACHYCARDIA POSSIBLE LEFT ATRIAL ENLARGEMENT ABNORMAL RHYTHM ECG INFERIOR MT, OLD INCREASED RATE 09/19/15 Electronically Signed on 08-01-2019 22:06:25 EST by Clare Priest
[2019-08-04 09:45] LABS: DRVV SCREEN 72.1 SEC
[2019-08-04 09:49] LABS: PTT LUPUS TYPE ANTICOAG SCREEN 1.8 (0-1.2)
[2019-08-04 09:53] LABS: DRVV CONFIRM 58.1 SEC; LUPUS CONFIRM RATIO 1.6
[2019-08-04 09:55] LABS: NORMALIZED RATIO 1.13 (0.00-1.20)
== END 2019-07-31 13:07 | disposition home or self-care (01) | DRG 299 ==
LOC: M ED 15:58 → M ED INP 19:30 → ENRESERVDT 20:03 → ENRESERVTM 20:03 → M MSPAV 20:56
PROVIDERS: ADMIT Internal Medicine; ATTEND Internal Medicine
DX: I82.4Z2 Acute embolism and thrombosis of unspecified deep veins of left distal lower extremity (principal); I26.99 Other pulmonary embolism without acute cor pulmonale; Z68.43 Body mass index [BMI] 50.0-59.9, adult; I10 Essential (primary) hypertension; M10.9 Gout, unspecified; E66.01 Morbid (severe) obesity due to excess calories; K76.0 Fatty (change of) liver, not elsewhere classified; J45.909 Unspecified asthma, uncomplicated; K21.9 Gastro-esophageal reflux disease without esophagitis; R91.8 Other nonspecific abnormal finding of lung field; Z79.899 Other long term (current) drug therapy

== ENCOUNTER 2019-08-02 14:29 | Emergency (ER) | payer OTHER ==
[~2019-08-02] VITALS: Ht 185.4 cm; Wt 170.9 kg
[~2019-08-02 14:29] MED LIST changes: +ALPR0.25 PO; +CEPH500C PO; +ESOM40CA35 PO; +LORA-674 PO; +XARE15TA PO
--- NOTE | 2019-08-02 15:36 | REP ---
Right lower extremity Duplex Doppler venous ultrasound: Real time compression and duplex Doppler interrogation of the right lower extremity deep venous system is performed. The right common femoral, superficial femoral and popliteal veins are fully compressible with transducer pressure and demonstrate normal spontaneous and phasic flow, without evidence of deep venous thrombosis. Impression: No evidence of deep venous thrombosis of the right lower extremity femoral popliteal venous system. Electronically Signed by Kamran Batista MD 08/02/2019 03:28 P
[2019-08-02 15:50] VITALS: BP 144/80
== END 2019-08-02 16:19 | disposition home or self-care (01) ==
LOC: M ED 14:29
DX: I83.90 Asymptomatic varicose veins of unspecified lower extremity (principal); I82.4Z2 Acute embolism and thrombosis of unspecified deep veins of left distal lower extremity; I26.99 Other pulmonary embolism without acute cor pulmonale; Z79.899 Other long term (current) drug therapy; Z79.01 Long term (current) use of anticoagulants

== ENCOUNTER → 2019-09-09 | Outpatient (REF) | payer OTHER ==
[2019-09-09 13:36] LABS: INFLUENZA A AMPLIFICATION NEGATIVE (NEGATIVE); INFLUENZA B AMPLIFICATION POSITIVE (NEGATIVE)
== END ==
LOC: M LAB REF 12:35
PROVIDERS: ATTEND Registered Nurse
DX: R50.9 Fever, unspecified (principal)

== ENCOUNTER 2019-09-16 11:49 | Emergency (ER) | payer OTHER ==
[~2019-09-16] VITALS: Ht 185.4 cm; Wt 173.9 kg
[2019-09-16] MEDS ORDERED: METF500T13 PO (11:55)
[2019-09-16] MEDS ORDERED: XARE20TA PO (11:55)
[2019-09-16] MEDS ORDERED: FLUORESCEIN OPHTH 1 MG STRIP OD ONE (12:30)
[2019-09-16] MEDS ORDERED: TETRACAINE 0.5% OPHTH SOLN 4ML OD ONE (12:30)
[2019-09-16] MEDS ORDERED: OCUF0.25 OD (12:48)
[2019-09-16] MEDS ORDERED: ADACEL/BOOSTRIX VACCINE (DIPHTH/PERTUSS/ACELL/TETANUS)0.5ML SYR (90715) IM ONE (13:00)
[2019-09-16 13:02] VITALS: BP 174/85
== END 2019-09-16 13:05 | disposition home or self-care (01) ==
LOC: M ED 11:49
DX: S05.01XA Injury of conjunctiva and corneal abrasion without foreign body, right eye, initial encounter (principal); X58.XXXA Exposure to other specified factors, initial encounter; Y92.89 Other specified places as the place of occurrence of the external cause; E11.9 Type 2 diabetes mellitus without complications; I10 Essential (primary) hypertension; K21.9 Gastro-esophageal reflux disease without esophagitis; G47.33 Obstructive sleep apnea (adult) (pediatric); Z79.899 Other long term (current) drug therapy; Z79.84 Long term (current) use of oral hypoglycemic drugs; Z79.01 Long term (current) use of anticoagulants

== ENCOUNTER → 2019-10-28 | Outpatient (CLI) | payer OTHER ==
[~2019-10-28] MED LIST changes: +ISOVUE-370 76% 100ML VIAL (Q9967) As Ordered ONE; +METF500T13 PO; +OCUF0.25 OD; +XARE20TA PO
--- NOTE | 2019-10-28 14:39 | REP ---
REASON: Followup pulmonary nodules. COMPARISON: 07/30/2019 Contrast 100 mL of Isovue 370. The mediastinum and pulmonary mirta are unchanged. There is no mass or adenopathy. The imaged upper abdomen and imaged osseous structures are unchanged. Evaluation of the lung cohen again shows scattered pulmonary nodules, the largest on the right measures 7 mm and the largest on the left measures 6 mm. No new abnormal nodules, masses, or opacities have developed. IMPRESSION: Pulmonary nodules as described above. No significant change from the prior exam. According to the revised Fleischner society criteria, the aforementioned nodules now represent category 2 lesions for which a 1-year followup is recommended. Scanning of the lungs is recommended providing the patient's risk factors remain high. Electronically Signed by Artemio Scott DO 10/28/2019 04:59 P
== END ==
LOC: M RAD 13:44
PROVIDERS: ATTEND Registered Nurse
DX: R91.1 Solitary pulmonary nodule (principal)
CPT/HCPCS: 71260; Q9967

== ENCOUNTER 2020-01-08 18:56 | Emergency (ER) | payer OTHER ==
[~2020-01-08] VITALS: Ht 185.4 cm; Wt 167.4 kg
[~2020-01-08 18:56] MED LIST changes: -ISOVUE-370 76% 100ML VIAL (Q9967) As Ordered ONE
--- NOTE | 2020-01-08 20:40 | REPVR ---
PROCEDURE INFORMATION: Exam: US Duplex Right Lower Extremity Veins, Limited Exam date and time: 01/08/2020 8:08 PM Age: 44 years old Clinical indication: Pain; Leg, lower; Right; Additional info: History of dvt, leg pain, R/O dvt TECHNIQUE: Imaging protocol: Real-time Duplex ultrasound of the Right Lower Extremity with 2-D martinez scale, color Doppler flow and spectral waveform analysis with image documentation. Limited exam was focused on the right lower extremity veins. COMPARISON: US Duplex, Ext,LOWER veins,unilat 08/02/2019 2:49 PM FINDINGS: Right deep veins: Unremarkable. The common femoral, femoral, proximal profunda femoral and popliteal veins are patent without thrombus. Normal Doppler waveforms. Normal compressibility and/or augmentation response. Right superficial veins: Unremarkable. Saphenofemoral junction is patent without thrombus. Soft tissues: Unremarkable. IMPRESSION: No evidence of deep vein thrombosis. Electronically signed by: Windy Power On 01/08/2020 20:39:37 PM
[2020-01-08 20:55] VITALS: BP 67/99
== END 2020-01-08 20:57 | disposition home or self-care (01) ==
LOC: M ED 18:56
DX: M79.661 Pain in right lower leg (principal); Z91.030 Bee allergy status; Z87.891 Personal history of nicotine dependence; Z79.01 Long term (current) use of anticoagulants; Z86.718 Personal history of other venous thrombosis and embolism

== ENCOUNTER → 2020-02-26 | Outpatient (REF) | payer OTHER | LOC: M LAB REF 10:40 | PROVIDERS: ATTEND Family Medicine | DX: R74.0 Nonspecific elevation of levels of transaminase and lactic acid dehydrogenase [LDH] (principal) ==

== ENCOUNTER 2020-04-26 11:01 | Emergency (ER) | payer OTHER ==
[~2020-04-26] VITALS: Ht 185.4 cm; Wt 139.6 kg
[2020-04-26 11:45] LABS: BASO # 0.1 10^3/uL (0.0-0.2); BASO % 0.7 % (0.0-1.0); EOS # 0.2 10^3/uL (0.0-0.5); EOS % 3.1 % (0.0-3.0); HEMATOCRIT 48.4 % (42.0-52.0); HEMOGLOBIN 16.8 g/dl (13.5-17.5); LYMPH # 1.7 10^3/uL (1.5-5.0); LYMPH % 24.4 % (24.0-44.0); MEAN CORPUSCULAR HEMOGLOBIN 31.9 pg (27.0-33.0); MEAN CORPUSCULAR HGB CONC 34.7 g/dl (32.0-36.5); MEAN CORPUSCULAR VOLUME 91.8 fl (80.0-96.0); MONO # 0.7 10^3/uL (0.0-0.8); MONO % 9.2 % (0.0-5.0); NEUTROPHILS # 4.4 10^3/uL (1.5-8.5); NEUTROPHILS % 62.3 % (36.0-66.0); PLATELET COUNT, AUTOMATED 253 10^3/uL (150-450); RED BLOOD COUNT 5.27 10^6/uL (4.30-6.10)
--- NOTE | 2020-04-26 11:56 | REPVR ---
PROCEDURE INFORMATION: Exam: XR Chest, 1 View Exam date and time: 04/26/2020 11:39 AM Age: 44 years old Clinical indication: Chest pain; Type not specified TECHNIQUE: Imaging protocol: XR of the chest Views: 1 view. COMPARISON: CT Chest with contrast 10/28/2019 2:15 PM FINDINGS: Lungs: Unremarkable. No consolidation. Pleural space: Unremarkable. No pleural effusion. No pneumothorax. Heart/Mediastinum: Unremarkable. No cardiomegaly. Bones/joints: Unremarkable. IMPRESSION: No acute findings. Electronically signed by: Varsha Beckham On 04/26/2020 11:56:09 AM
[2020-04-26] MEDS ORDERED: ISOVUE-370 76% 100ML VIAL As Ordered ONE (11:57)
--- NOTE | 2020-04-26 13:58 | REPVR ---
PROCEDURE INFORMATION: Exam: CT Angiography Chest With Contrast Exam date and time: 04/26/2020 12:02 PM Age: 44 years old Clinical indication: Chest pain TECHNIQUE: Imaging protocol: Computed tomographic angiography of the chest with intravenous contrast. 3D rendering (Not supervised by radiologist): MIP and/or 3D reconstructed images were created by the technologist. Radiation optimization: All CT scans at this facility use at least one of these dose optimization techniques: automated exposure control; mA and/or kV adjustment per patient size (includes targeted exams where dose is matched to clinical indication); or iterative reconstruction. Contrast material: ISOVUE 370; Contrast volume: 75 ml; Contrast route: INTRAVENOUS (IV); COMPARISON: CT ANGIO CHEST 07/30/2019 6:22 PM FINDINGS: Pulmonary arteries: Somewhat limited evaluation of the distal pulmonary arterial branches due to suboptimal contrast timing. No filling defect in the main pulmonary arteries or the primary or secondary order pulmonary arterial branches. The main pulmonary arterial trunk is normal in caliber. Aorta: Unremarkable. No aortic aneurysm. No aortic dissection. Lungs: Stable noncalcified 3 mm left lower lobe pulmonary nodule (series 402, image 72). Stable noncalcified 2 mm right lower lobe pulmonary nodule, adjacent to the major fissure (series 402, image 46). Stable 2 mm noncalcified right upper lobe pulmonary nodule (series 402, image 37). Stable noncalcified 2 mm right middle lobe pulmonary nodule (series 402, image 49). Stable noncalcified 5 mm right lower lobe pulmonary nodule (series 402, image 61). Pleural space: Unremarkable. No pneumothorax. No pleural effusion. Heart: Unremarkable. No cardiomegaly. No pericardial effusion. Lymph nodes: Unremarkable. No enlarged lymph nodes. Bones/joints: Degenerative change of the spine. Soft tissues: Unremarkable. IMPRESSION: 1. No evidence of pulmonary embolism. Slightly limited evaluation of the distal pulmonary arterial branches. 2. Stable noncalcified pulmonary nodules, measuring up to 5 mm. For patients at low risk (minimal or absent history of smoking and of other known risk factors), no routine follow-up is indicated. For patients at high risk (history of smoking or of other known risk factors), consider optional CT Chest at 12 months. (Reference: Niki) REFERENCES: Niki Davila et al. Guidelines for Management of Incidental Pulmonary Nodules Detected on CT Images: From the Fleischner Society 2017. Radiology. 2017;284(1):228-243. Electronically signed by: Varsha Beckham On 04/26/2020 12:30:01 PM
[2020-04-26 15:54] VITALS: BP 131/77
--- NOTE | 2020-04-27 08:25 | ECGEPIP ---
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 Order Number: [id number] Reading MD: Clare Priest Measurements Intervals [place] Rate: 80 P: 48 [place]: 164 QRS: 6 QRSD: 113 T: 14 QT: 374 QTc: 434 Interpretive Statements SINUS RHYTHM MODERATE INTRAVENTRICULAR CONDUCTION DELAY POSSIBLE PRIOR INFERIOR DC DECREASED RATE 07/30/19 Electronically Signed on 04-27-2020 8:25:40 EDT by Clare Priest
--- NOTE | 2020-04-27 08:29 | ECGEPIP ---
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 Order Number: [id number] Reading MD: Clare Priest Measurements Intervals [place] Rate: 71 P: 7 [place]: 175 QRS: -5 QRSD: 106 T: 9 QT: 400 QTc: 436 Interpretive Statements SINUS RHYTHM WITH SINUS ARRHYTHMIA OLD INFERIOR NM IVCD SIMILAR 11:19 Electronically Signed on 04-27-2020 8:28:55 EDT by Clare Priest
== END 2020-04-26 16:03 | disposition home or self-care (01) ==
LOC: M ED 11:01
DX: R07.9 Chest pain, unspecified (principal); I25.2 Old myocardial infarction; J45.909 Unspecified asthma, uncomplicated; I10 Essential (primary) hypertension; R91.8 Other nonspecific abnormal finding of lung field; Z86.718 Personal history of other venous thrombosis and embolism; Z91.030 Bee allergy status
CPT/HCPCS: 36415; 71045; 71275; 80047; 84443; 84484; 85025; 93005; 93041; 94760; 99285; Q9967

== ENCOUNTER → 2020-09-28 | Outpatient (REF) | payer OTHER ==
[~2020-09-28] MED LIST changes: +HYDR-3490 PO; -HYDR25TAB PO; +LISI10TA22 PO; -LISI10TA4 PO
[2020-09-28 13:17] LABS: AMYLASE 62 U/L (25-115); LIPASE 104 U/L (73-393)
== END ==
LOC: M LAB REF 12:27
PROVIDERS: ATTEND Registered Nurse
DX: R10.11 Right upper quadrant pain (principal)

== ENCOUNTER → 2020-10-14 | Outpatient (CLI) | payer OTHER ==
--- NOTE | 2020-10-14 08:01 | REP ---
INDICATION: RUQ ABD PAIN. COMPARISON: Comparison sonography January 04, 2020.. TECHNIQUE: Right upper quadrant sonography FINDINGS: Scanning through the right upper quadrant of the abdomen demonstrates a normal sized, thin-walled gallbladder without evidence of stone or polyp. Common bile duct is normal measuring 0.4 cm in greatest diameter. No focal liver lesion is seen. Liver size is normal. No pancreatic abnormality is observed. No right renal abnormality is seen. There is no evidence of ascites. The right kidney measures 11.2 x 5.2 x 5.4 cm. IMPRESSION: Negative right upper quadrant sonography. <Electronically signed by Eduardo Ruiz > 10/14/20 [id number]
== END ==
LOC: M RAD 06:55
PROVIDERS: ATTEND Registered Nurse
DX: R10.11 Right upper quadrant pain (principal)

== ENCOUNTER → 2020-12-07 | Outpatient (REF) | payer OTHER ==
[2020-12-07 17:02] LABS: AMYLASE 68 U/L (25-115); LIPASE 108 U/L (73-393)
== END ==
LOC: M LAB REF 16:23
PROVIDERS: ATTEND Family Medicine
DX: R10.11 Right upper quadrant pain (principal)

== ENCOUNTER → 2021-08-04 | Outpatient (CLI) | payer OTHER ==
[~2021-08-04] MED LIST changes: +ISOVUE-370 76% 100ML VIAL As Ordered ONE
== END ==
LOC: M RAD 07:33
PROVIDERS: ATTEND Family Medicine
DX: R91.8 Other nonspecific abnormal finding of lung field (principal)
CPT/HCPCS: 71260; Q9967

== ENCOUNTER → 2021-10-03 | Outpatient (REF) | payer OTHER ==
[~2021-10-03] MED LIST changes: -ISOVUE-370 76% 100ML VIAL As Ordered ONE
== END ==
LOC: M LAB REF 16:18
PROVIDERS: ATTEND Family Medicine
DX: E78.5 Hyperlipidemia, unspecified (principal)

== ENCOUNTER → 2023-09-02 | Outpatient (CLI) | payer OTHER ==
[~2023-09-02] MED LIST changes: -DOXY-350 PO; +DOXY-444 PO; +LORA-1041 PO; -LORA-674 PO
== END ==
LOC: M RAD 07:59
PROVIDERS: ATTEND Family Medicine
DX: R22.1 Localized swelling, mass and lump, neck (principal)

== ENCOUNTER 2024-04-02 10:27 | Day surgery (SDC) | payer OTHER ==
[~2024-04-02] VITALS: Ht 185.4 cm; Wt 1015.1 kg
[~2024-04-02 10:27] MED LIST changes: +DOXY-440 PO; -DOXY-444 PO; +NS 1,000 ML IV ONE
[2024-04-02] MEDS ORDERED: fentaNYL 100 MCG/2 ML INJECTION As Ordered ONE (10:53)
[2024-04-02] MEDS ORDERED: propofoL 200 MG/20 ML VIAL As Ordered ONE (11:17)
[2024-04-02] MEDS ORDERED: LIDOCAINE 2% 100MG/5ML SDV (FOR ANES.) As Ordered ONE (11:17)
[2024-04-02 11:41] VITALS: TEMP 98.8
[2024-04-02 12:00] VITALS: BP 111/57; O2SAT 97
== END 2024-04-02 12:09 | disposition home or self-care (01) ==
LOC: M OPP 10:27
PROVIDERS: ATTEND Surgery
DX: Z12.11 Encounter for screening for malignant neoplasm of colon (principal); K62.5 Hemorrhage of anus and rectum; K57.30 Diverticulosis of large intestine without perforation or abscess without bleeding; K30 Functional dyspepsia; I10 Essential (primary) hypertension; G47.33 Obstructive sleep apnea (adult) (pediatric); Z87.891 Personal history of nicotine dependence; Z86.711 Personal history of pulmonary embolism; Z79.01 Long term (current) use of anticoagulants; Z79.899 Other long term (current) drug therapy; Z91.030 Bee allergy status
CPT/HCPCS: 43235; 45378; J3010

== ENCOUNTER → 2024-08-24 | Outpatient (CLI) | payer OTHER ==
[~2024-08-24] MED LIST changes: +ISOVUE-370 76% 100ML VIAL As Ordered ONE; -NS 1,000 ML IV ONE
== END ==
LOC: M RAD 14:01
PROVIDERS: ATTEND Family Medicine
DX: R10.11 Right upper quadrant pain (principal)
CPT/HCPCS: 74177; Q9967

== ENCOUNTER → 2025-03-19 | Outpatient (CLI) | payer OTHER ==
[~2025-03-19] MED LIST changes: -ISOVUE-370 76% 100ML VIAL As Ordered ONE
== END ==
LOC: M PLARAD 10:59
PROVIDERS: ATTEND Pain Medicine Interventional Pain Medicine
DX: M54.14 Radiculopathy, thoracic region (principal)